=== PATIENT | male | born 1985 | race African-American/Black ===

== ENCOUNTER 2019-08-05 08:06 | Emergency (ER) | payer MEDICAID ==
[~2019-08-05] VITALS: Ht 188 cm; Wt 116.1 kg
[2019-08-05 08:10] VITALS: BP 126/79
--- NOTE | 2019-08-05 08:15 | NUR ---
PT AMBULATED TO BED 6.
--- NOTE | 2019-08-05 08:19 | NUR ---
34 Y/O MALE FROM HOME C/O LUMP TO RT ARMPIT X 1 MONTH. PT STATES 7/10 ACHING/SORE PAIN. NO NOTICABLE SWELLING/DISCOLORATION. DENIES DRAINAGE. HAS NOT TAKEN ANY MEDICATION FOR PAIN. SKIN WARM AND DRY TO THE TOUCH MEDHX: DENIES ALLERGIES: NKA
--- NOTE | 2019-08-05 08:26 | NUR ---
Dr. Mendoza is evaluating the patient at bedside.
[2019-08-05 08:35] VITALS: BP 126/79
== END 2019-08-05 08:34 | disposition home or self-care (01) ==
LOC: MED 08:06
DX: N63.32 Unspecified lump in axillary tail of the left breast (principal); F17.210 Nicotine dependence, cigarettes, uncomplicated
CPT/HCPCS: 99282